=== PATIENT | male | born 1975 | race Caucasian/White ===

== ENCOUNTER → 2021-11-21 02:04 | Outpatient (CLI) | payer BC, SELFPAY ==
[2021-11-22 13:33] LABS: SARS-CoV-2 RNA PCR Positive
== END ==
PROVIDERS: PCP Family Medicine; Visit Provider Family Medicine
DX: U07.1 COVID-19 (principal)
CPT/HCPCS: C9803; U0003; U0005

== ENCOUNTER 2022-02-19 18:22 | Emergency (ER) | payer BC, SELFPAY ==
--- NOTE | ~2022-02-19 | CT_ITS ---
EXAMINATION: CT abdomen pelvis w con DATE: 02/19/2022 21:39 INDICATION: Left renal mass reported on 02/11/[address] abdomen pelvis examination TECHNIQUE: Computed tomography (CT) of the abdomen and pelvis was performed at the right and mild a There is an annular calcification. 20 intravenous contrast. Automated exposure control and iterative reconstruction technique were emplo yed. Exam dose: 869.51 mGy-cm total exam DLP. COMPARISON: 02/12/2020 CT abdomen pelvis noncontrast examination FINDINGS: There are bilateral renal cysts, including several on the right measuring up to approximate ly 1 cm dimension, upper pole left renal cyst measuring 11 mm, exophytic lower pole left renal cyst m easuring 1.6 cm. Bilateral ureteral jets are demonstrated. No hydroureteronephrosis or urinary tract obstruction. Small gallstone is confirmed in the dependent aspect of the body of the gallbladder. Approximately 7 x 5 mm right hepatic cyst. Small sliding hiatal hernia. IMPRESSION: Bilateral renal cysts Small hepatic cysts Small nonobstructing gallstone Reviewed, dictated and finalized at [facility]. Reviewed, dictated and finalized at [facility].
--- NOTE | ~2022-02-19 | CT_ITS ---
EXAMINATION: CT abdomen pelvis wo con DATE: 02/19/2022 20:14 INDICATION: Hematuria. History kidney stones. TECHNIQUE: Computed tomography (CT) of the abdomen and pelvis was performed without intravenous contr ast. Automated exposure control and iterative reconstruction technique were employed. Exam dose: 342 .73 mGy-cm total exam DLP. COMPARISON: 07/01/2004 CT renal scan FINDINGS: The lung bases are clear. Normal heart size. No pericardial or pleural effusion. The liver, spleen, pancreas, adrenal glands are unremarkable. There is a very small stone suggested in the dependent aspect of the gallbladder fundus. No gallbladd er wall thickening or pericholecystic fluid or fat stranding. No bile duct or pancreatic duct dilatat ion. There is an approximately 1.6 cm convexity of the lateral aspect of the mid left kidney; renal solid mass lesion is not excluded. Consider further evaluation with iodinated intravenous contrast materia l. No urinary tract calculus or hydroureteronephrosis. The urinary bladder, prostate gland and seminal v esicles are unremarkable. Normal caliber of the abdominal aorta. No intraperitoneal or retroperitoneal or pelvic mass lesion or adenopathy or ascites. Normal appendix. There are some air-fluid levels within the small bowel and right colon suggesting enterocolitis. No b owel obstruction, bowel wall thickening, pneumatosis or intraperitoneal free air is detected. Small fat containing umbilical hernia. Bilateral hip osteoarthritis. IMPRESSION: Probable small gallstone Approximately 1.6 cm left renal mass lesion is suggested; CT examination with IV contrast material is recommended. Reviewed, dictated and finalized at [facility] Reviewed, dictated and finalized at [facility]. IMPRESSION: Probable small gallstone Approximately 1.6 cm left renal mass lesion is suggested; CT examination with I V contrast material is recommended.
[2022-02-19 18:34] VITALS: BP 155/92; PULSE 75; RESP 14; TEMP 36.4; O2SAT 98
[2022-02-19 19:23] LABS: Add Urine Microscopic? YES; Appearance Urine Cloudy (Clear); Bacteria Urine 2+ /hpf; Bilirubin Urine Negative (Negative); Blood Urine 3+ (Negative); Color Urine Yellow (Yellow); Glucose Urine UA Negative (Negative); Ketones Urine Negative (Negative); Leukocyte Esterase Ur 3+ LEU/UL (Negative); Mucus Urine Rare /lpf; Nitrate Urine Negative (Negative); Protein Urine 2+ mg/dL (Negative); RBC Urine >75 /hpf (0-2); Specific Grav Ur 1.024 (1.001-1.035); Urobilinogen Urine Negative mg/dL (<2.0); WBC Clumps Urine Present /HPF; WBC Urine >75 /hpf
[2022-02-19 20:01] LABS: Basophils Absolute Auto 0.1 K/mm3 (0.0-0.1); Basophils Percent Auto 0.3 % (0.2-1.2); Eosinophils Absolute Auto 0.1 K/mm3 (0-0.3); Eosinophils Percent Auto 0.3 % (0-4.4); Hematocrit 55.4 % (42.0-52.0); Hemoglobin 18.2 g/dL (14.0-18.0); Immature Granulocyte Absolute 0.07 K/mm3 (0.00-0.031); Immature Granulocyte Percent A 0.4 % (0-0.5); Lymphocytes Absolute Auto 1.42 K/mm3 (0.9-3.2); Mean Corpuscular HGB Conc 32.9 g/dl (32-36); Mean Corpuscular Volume 88.2 fl (80-100); Mean Platelet Volume 10.9 fl (7.4-10.4); Monocytes Absolute Auto 1.1 K/mm3 (0.1-0.6); Monocytes Percent Auto 6.1 % (2.6-8.5); Neutrophils Absolute Auto 15.2 K/mm3 (1.3-6.7); Neutrophils Percent Auto 84.9 % (45.5-73.1); Platelet Count Result 173 k/mm3 (150-375); Red Blood Count 6.28 M/mm3 (4.6-6.20); Red Cell Distribution Width 13.3 % (11.5-14.5); White Blood Count 17.8 K/mm3 (4.5-10.0)
--- NOTE | 2022-02-19 20:01 | ED.MALEGU ---
HPI - Male Genitourinary General Chief complaint: Urogenital-Male Stated complaint: Urinating blood Time Seen by Provider: 02/19/22 19:42 Source: patient Mode of arrival: ambulatory Limitations: no limitations History of Present Illness HPI Narrative: This is a 46 year old male that presents to the ER for hematuria since yesterday. Associated with dysuria and frequency. Reports history of kidney stones. Denies fever, abdominal pain or vomiting. Related Data Allergies Allergy/AdvReac Type Severity Reaction Status Date / Time codeine Allergy Unknown Unknown Verified 02/19/22 20:16 Review of Systems Review of Systems: CONSTITUTIONAL: Denies fever GASTROINTESTINAL: Denies abdominal pain, nausea, vomiting GENITOURINARY: Reports dysuria and hematuria. All systems reviewed & are unremarkable except as noted in HPI and below PMFSH Past Medical History Medical History (Updated 02/19/22 @ 22:05 by Stephania Ramirez PA-C) No active medical problems Family History Family History (Updated 03/05/19 @ 08:41 by DOCTOR UNKNOWN) Father Diabetes mellitus Family history of cardiovascular disease Mother Family history of lung cancer Social History Social History (Updated 02/19/22 @ 20:03 by Stephania Ramirez PA-C) Substance use: never Exam Narrative: GENERAL: Well-appearing, well-nourished, and in no acute distress. HEAD: Normocephalic, atraumatic. EYES: EOMI. CHEST: Clear to auscultation. No respiratory distress. No wheezes rales or rhonchi HEART: Regular rate and rhythm. No murmur heard. Normal peripheral pulses. ABDOMEN: Soft, nontender, nondistended, normal active bowel sounds. No CVA tenderness EXTREMITIES: Normal range of motion. No edema. SKIN: Warm, dry, no rash. NEURO: No focal deficits. Alert and oriented x3. PSYCH: Normal mood and affect Course Vital Signs Vital signs: Vital Signs Temperature 97.6 F 02/19/22 18:34 Pulse Rate 75 02/19/22 18:34 Respiratory Rate 14 02/19/22 18:34 Blood Pressure 155/92 H 02/19/22 18:34 Pulse Oximetry 98 02/19/22 18:34 Temperature 97.6 F 02/19/22 18:34 Pulse Rate 75 02/19/22 18:34 Respiratory Rate 14 02/19/22 18:34 Blood Pressure 155/92 H 02/19/22 18:34 Pulse Oximetry 98 02/19/22 18:34 MDM - Male Genitourinary MDM Narrative Medical decision making narrative: Patient presents to the emergency department for urinary symptoms noted since yesterday. He is afebrile and nontoxic-appearing. His vitals are stable. CBC with leukocytosis to 17.8. Also shows mild hemoconcentration. Metabolic panel without concerning findings. UA with evidence of infection. His lactic acid is not elevated. CT scan of the abdomen and pelvis initially without contrast showed a 1.6 cm left renal mass lesion, recommend CT scan with contrast. CT with contrast shows bilateral renal cysts, small hepatic cyst, and small nonobstructing gallstone. Patient was updated on case findings. Hydrated in the ED and given first dose of antibiotics IV. Will be discharged on oral antibiotics. He is stable and felt appropriate for further outpatient evaluation. Instructed to have close follow-up with his primary doctor. He was given warnings to return to the ER Lab Data Attestation: I reviewed the patient's lab results. Result diagrams: 02/19/22 19:55 02/19/22 19:55 Labs: Lab Results 02/19/22 02/19/22 02/19/22 Range/Units 18:38 19:55 19:55 WBC 17.8 H (4.5-10.0) K/mm3 RBC 6.28 H (4.6-6.20) M/mm3 Hgb 18.2 H (14.0-18.0) g/dL Hct 55.4 H (42.0-52.0) % MCV 88.2 (80-100) fl MCH 29.0 (26-34) pg MCHC 32.9 (32-36) g/dl RDW 13.3 (11.5-14.5) % Plt Count 173 (150-375) k/mm3 MPV 10.9 H (7.4-10.4) fl Immature Gran % (Auto) 0.4 (0-0.5) % Neut % (Auto) 84.9 H (45.5-73.1) % Lymph % (Auto) 8.0 L (18.3-44.2) % [place] % (Auto) 6.1 (2.6-8.5) % Eos % (Auto) 0.3 (0-4.4) % Baso % (Auto) 0
[2022-02-19 20:10] LABS: Lactic Acid Reflex 0.6 mmol/L (0.7-2.1)
[2022-02-19 20:12] LABS: Alanine Aminotransferase 24 U/L (4-50); Albumin Level 4.6 g/dL (3.5-5.1); Alkaline Phosphatase 71 U/L (38-126); Anion Gap 6 mmol/L (8-16); Aspartate Amino Transferase 28 U/L (17-59); Blood Urea Nitrogen 14 mg/dL (9-20); Calcium 9.4 mg/dL (8.4-10.2); Carbon Dioxide 27 mmol/L (22-30); Chloride 102 mmol/L (98-107); Estimated CRCL calculation 84 ml/min; Estimated Glomerular Filt Rate > 60; Glucose 105 mg/dL (65-110); Potassium 4.2 mmol/L (3.4-5.0); Sodium 135 mmol/L (137-145)
[2022-02-19 20:15] LABS: CRP 4.6 mg/dL (<1.0)
[2022-02-19] MEDS: SODIUM CHLORIDE 0.9% IV 1,000 ML 999 ML IV CONT (20:25)
[2022-02-19 21:50] VITALS: BP 147/86; PULSE 80; RESP 16; O2SAT 97
== END 2022-02-19 22:12 | disposition home or self-care (01) ==
PROVIDERS: Physician Assistant; Emergency Provider Emergency Medicine; PCP Family Medicine
DX: N30.01 Acute cystitis with hematuria (principal); Z87.442 Personal history of urinary calculi
CPT/HCPCS: 36415; 74176; 74177; 74178; 80053; 81001; 83605; 85025; 86140; 87077; 87086; 87186; 96365; 99284; J0696; J7030; Q9967

== ENCOUNTER 2024-09-22 08:17 | Emergency (ER) | payer BC, SELFPAY ==
--- NOTE | 2024-09-22 08:26 | ED_ITS ---
HPI - URI/Sore Throat General Chief Complaint: Upper Respiratory Infection Stated Complaint: Flu like symptoms/fever Time Seen by Provider: 09/22/24 08:26 Source: patient, RN notes reviewed and old records reviewed Mode of arrival: ambulatory Limitations: no limitations History of Present Illness HPI Narrative: 48-year-old male to [facility] with complaint of cough, body aches, congestion chest discomfort when coughing and fever. 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 Patient's daughter currently being treated for pneumonia. Patient states that he has taken 2- COVID tests at home, last one yesterday. Patient reports treating at home with Tylenol, ibuprofen, guaifenesin. Patient states he prefers not to have a chest x-ray done, requesting treatment. Patient able to tolerate fluids by mouth. Patient resting comfortably in exam room no acute distress. Respirations even and nonlabored. Related Data Home Medications Medication Instructions Recorded Confirmed cholecalciferol (vitamin D3) 25 25 mcg PO DAILY 12/06/22 09/22/24 mcg (1,000 unit) capsule omega [id number] oil 300 1 cap PO TID 12/06/22 09/22/24 mg-1,000 mg capsule (Fish Oil) testosterone cypionate 100 mg/mL 50 mg IM .twice a week 12/05/23 09/22/24 intramuscular oil (Depo-Testosterone) Allergies Allergy/AdvReac Type Severity Reaction Status Date / Time codeine Allergy Unknown Unknown Verified 09/22/24 08:39 Review of Systems Review of Systems: All systems reviewed & are unremarkable except as noted in HPI and below Constitutional: Constitutional: Reports as per HPI, Reports body ache(s) and Reports fever(s) Eyes: Eyes: Reports no additional eye complaints ENT: Reports system reviewed and no additional complaints, except as documented Cardiovascular: Cardiovascular: Reports no additional cardiovascular complaints, Denies chest pain and Denies dyspnea Respiratory: Respiratory: Reports no additional respiratory complaints, Reports cough and Denies dyspnea Musculoskeletal: Musculoskeletal: Reports no additional musculoskeletal complaints Neurologic: Reports system reviewed and no additional complaints, except as documented Psychiatric: Psychiatric: Reports no additional psychiatric complaints PMFSH Past Medical History Medical History ED (erectile dysfunction) Essential (primary) hypertension Generalized anxiety disorder Insomnia, unspecified Localized swelling, mass, and lump of head Major depressive disorder, recurrent, unspecified No active medical problems REBA (obstructive sleep apnea) Family History Family History Father Diabetes mellitus Family history of cardiovascular disease Mother Family history of lung cancer Social History Social History Smoking status: Former smoker Alcohol intake: never Substance use: never Substance use type: does not use Do You Feel Safe in your Home?: Yes Lack of Transportation: No Lack of Food: Never True Current Housing: I Have Housing Concerned About Future Housing: No Difficulty Paying Gas/Electric Bills: No Difficulty Paying for Meds: No Currently Unemployed: No Education: Associate Degree Difficulty w/ Childcare or Family Care: No Living arrangements: with family Occupation/Education: occupation Gender identity (if verbalized by the patient): Male Sexual Orientation (if Verbalized by the Patient): Straight or Heterosexual Comments At the time of my signature, I reviewed and agree with the nursing past medical, surgical, social, and family history. There is no relevant family history pertinent to the patient complaint. Exam Const: General: cooperative, no acute distress, alert, ill appearing acutely, tired appearing and well nourished Nutritional Appearance: well nourished Orientation/consciousness: patient oriented x3 Limitations: no limitations HENMT: Head: normal to inspection Ears: external ears normal and TM abnormal bulging on the left, erythematous bilateral and with fluid behind the TM bilateral ( purulent) Face/Nose/Sinus: Normal external nose present, Normal nares present, normal facial exam, No erythema and No edema Face and sinus: normal facial exam, no erythema and no edema Mouth: Yes Normal oral and palatal mucosa present Throat: posterior oropharynx abnormal erythema and postnasal drainage Eyes: General: appearance normal, both eyes and all related structures Neck: Neck: normal visual inspection, full ROM and no meningeal signs Lymphatic: no lymphadenopathy noted and no lymphedema noted Chest: Chest palpation & inspection: normal inspection of the chest Resp: Effort & Inspection: normal respiratory effort and able to speak in complete sentences Auscultation: clear to auscultation bilaterally Cardio: Jugular venous distension: no JVD Rate: regular rate Rhythm: regular rhythm Back/Spine/Pelvis: Cervical Spine: cervical ROM normal Skin: General skin exam: normal color, no rashes or lesions noted and turgor normal Neuro: General: patient oriented x3, gait normal, moves all extremities and no meningeal signs Speech: normal speech Gait exam (Neuro): Normal gait present Extrem: General: normal to inspection, full ROM and capillary refill normal Psych: Appearance: grossly normal and well kempt Course Course Emergency Course: Some parts of this dictation were generated by voice recognition software and may contain typographical and/or grammatical inaccuracies. Level of Care: Express Care Visit Vital Signs Vital signs: reviewed MDM - URI/Sore Throat MDM Narrative Medical decision making narrative: 48-year-old male to [facility] with complaint of cough, body aches, congestion chest discomfort when coughing and fever. 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 Patient's daughter currently being treated for pneumonia. Patient states that he has taken 2- COVID tests at home, last one yesterday. Patient reports treating at home with Tylenol, ibuprofen, guaifenesin. Patient states he prefers not to have a chest x-ray done, requesting treatment. Patient able to tolerate fluids by mouth. Patient resting comfortably in exam room no acute distress. Respirations even and nonlabored. Patient is sitting uncomfortably in exam room nontoxic in appearance. on exam, bilateral TMs erythematous with purulent drainage. Left TM bulging with loss of landmarks. Posterior oropharynx with purulent postnasal drainage, erythematous. Patient appropriate for outpatient treatment and follow-up. Discharge instructions reviewed with patient, as well as provided in writing per nursing staff. The instructions also include specific and strict return/GO TO THE ER as well as f/u information. All questions have been answered, and the patient deny any further questions with discharge and discharge plan. Some parts of this dictation were generated by voice recognition software and may contain typographical and/or grammatical inaccuracies. Differential Diagnosis Differential diagnosis: Likely upper respiratory infection, croup, otitis media, sinusitis, viral infection, bronchitis, influenza and pharyngitis Discharge Plan Discharge Clinical Impression: Acute bacterial bronchitis, Acute left otitis media Patient Disposition: Home, Self-Care Condition: Stable Instructions: Acute Bronchitis (ED) Additional Instructions: -Alternate Tylenol and Motrin per package directions for fever or pain. -Antihistamine medication such as Benadryl at night and Zyrtec/Claritin/Unique during the day can help improve symptoms. -Use Flonase twice a day for 5 days then daily to help reduce the inflammation and dry up your sinuses. -You can also use Sudafed or Mucinex. Be sure to drink plenty of water with these medications at least 8 ounces with every dose and it is important to drink 8 to 10 glasses of water per day. Water is a natural decongestant -Eat and drink things that are easy to swallow, like tea or soup, or popsicles. -Oral rinses such as: Salt water gargles and/or may use topical anesthetic (eg. Chloraseptic spray) or lozenges to relieve dryness or throat pain). -Frequent hand washing or hand electrolysis needle operator is one of the best ways to prevent spread of infection. -Using a vaporizer or humidifier at night will also help thin secretions and help with coughing up phlegm. -Follow up with primary care provider in 2-3 days if condition is not improving; or seek ER visit if you have trouble breathing, cannot drink enough fluids, have muffled voice, difficulty opening your mouth, or severe swelling. Prescriptions: New prednisone 20 mg tablet 40 mg PO DAILY Qty: 5 0RF azithromycin 500 mg tablet 500 mg PO DAILY 5 Days Qty: 5 0RF No Action cholecalciferol (vitamin D3) 25 mcg (1,000 unit) capsule 25 mcg PO DAILY omega 5-ens-kdl-fish oil [Fish Oil] 300-1,000 mg capsule 1 cap PO TID testosterone cypionate [Depo-Testosterone] 100 mg/mL oil 50 mg IM .twice a week sildenafil 100 mg tablet 100 mg PO DAILY PRN (Reason: sexual activity) Qty: 20 1RF Rx Instructions: administer 30 minutes to 4 hours before activity metoprolol succinate 100 mg tablet extended release 24 hr 100 mg PO DAILY Qty: 90 1RF zolpidem 10 mg tablet 10 mg PO QHS PRN (Reason: insomnia) Qty: 30 0RF alprazolam 1 mg tablet 1 mg PO DAILY PRN (Reason: anxiety) Qty: 30 0RF amlodipine 5 mg tablet 5 mg PO DAILY Qty: 90 1RF Follow-up/Referrals: Bennie Hernandez MD [Primary Care Provider] - Stand Alone Forms: Work/School Release IP
[2024-09-22 08:28] VITALS: BP 141/90; PULSE 102; RESP 20; TEMP 36.4; O2SAT 99
[2024-09-22 08:39] VITALS: BP 141/90; PULSE 102; RESP 20; TEMP 36.4; O2SAT 99
[2024-09-22 08:53] LABS: EDCOVIDSCREEN Negative (Negative); EDINFLUASCREEN Negative (Negative); EDINFLUBSCREEN Negative (Negative)
== END 2024-09-22 08:57 | disposition home or self-care (01) ==
PROVIDERS: Emergency Provider Nurse Practitioner Family; PCP Family Medicine
DX: J20.8 Acute bronchitis due to other specified organisms (principal); H66.92 Otitis media, unspecified, left ear; Z20.822 Contact with and (suspected) exposure to COVID-19; Z87.891 Personal history of nicotine dependence; I10 Essential (primary) hypertension
CPT/HCPCS: 87426; 87804; 99213; G0463